=== PATIENT | female | born 1960 | race Caucasian/White ===

== ENCOUNTER 2023-07-11 08:32 | Day surgery (SDC) | payer OTHER, MEDICAID, SELFPAY ==
[2023-06-25 10:43] VITALS: BMI 22.9
[2023-06-25 11:07] LABS: % Basophils 0.5 % (0-2); % Eosinophils 2.9 % (0-6); % Immature Granulocytes 0.3 % (0-0.5); % Lymphocytes 12.4 % (20.5-51.1); % Monocytes 8.9 % (1.7-9.3); Absolute Eosinophils 0.2 10^3/uL (0-0.7); Absolute Lymphocytes 0.8 10^3/uL (1.2-3.4); Absolute Monocytes 0.6 10^3/uL (0.1-0.6); Absolute Neutrophils 4.9 10^3/uL (1.4-6.5); Hematocrit 39.3 % (37.0-47.0); Hemoglobin 13.3 g/dL (12.0-16.0); Mean Corp Hgb Conc. 33.8 g/dL (33.0-37.0); Mean Corpuscular Hgb 31.7 pg (27.0-31.0); Mean Corpuscular Volume 93.8 fL (81.0-99.0); Mean Platelet Volume 10.3 fL (7.4-10.4); Nucleated Red Blood Cells % 0 %; Platelet Count 237 10^3/uL (130-400); Red Blood Cell Count 4.19 10^6/uL (4.20-5.40); Red Cell Dist. Width 13.8 % (11.5-14.5); White Blood Cell Count 6.6 10^3/uL (4.8-10.8)
[2023-06-25 11:18] LABS: INR 3.55; PT 36.1 Sec (11.4-14.6)
[2023-06-25 12:41] LABS: ALT (SGPT) 52 U/L (0-35); AST (SGOT) 65 U/L (14-36); Albumin 4.4 g/dl (3.5-5.0); Alkaline Phosphatase 99 U/L (38-126); Blood Urea Nitrogen 21 mg/dl (7-17); Calcium 9.5 mg/dl (8.4-10.2); Carbon Dioxide 25 mmol/L (22-30); Chloride 98 mmol/L (98-107); Estimated Creatinine Clearance 60 ml/min; Glucose 107 mg/dl (70-99); Magnesium 2.3 mg/dl (1.6-2.3); Potassium 3.9 mmol/L (3.5-5.1); Sodium 137 mmol/L (135-145); Total Bilirubin 0.6 mg/dl (0.2-1.3); Total Protein 6.9 g/dl (6.3-8.2); eGFR > 60.00
--- NOTE | 2023-06-25 14:55 | HPS.HSE ---
Family Physician
-
Family Physician: Camryn Moon
Chief Complaint
-
Cardiomyopathy. Paroxysmal atrial fibrillation.
History of Present Illness
The patient is a 62 year old female presenting today for cardiomyopathy and paroxysmal atrial fibrillation. She previously underwent 2 pulmonary vein isolations for her arrhythmia. She is on current pharmacological therapy with Amiodarone
and Carvedilol. She takes Warfarin for oral anticoagulation. She did have a Medtronic [employer] device implanted due to her complex cardiac history with an eventual upgrade to a biventricular ICD in 2017. She was noted to have 2 months of battery life
remaining with her ICD at her last cardiac office visit on June 03, 2023. It is recommended she proceed with a biventricular ICD generator change at this time. She denies any complaints today such as chest pain, shortness of breath at rest,
nausea, vomiting, diarrhea, cough, sore throat, or fever.
Medical History
Past Medical History
Past Medical History: Reports Other
Additional Past Medical History:
1. Cardiomyopathy, status post Medtronic [employer] device with upgrade to biventricular ICD 2017.
2. Paroxysmal atrial fibrillation, status post pulmonary vein isolation x2; pharmacological therapy with Amiodarone and Carvedilol, oral anticoagulation with Coumadin.
3. Ventricular tachycardia, status post ablation 01/2023.
4. Ventricular tachycardia storm, 2012, in the setting of Tikosyn therapy.
5. Hypertension.
6. Borderline hypercholesterolemia.
7. Paroxysmal atrial tachycardia, status post remote cardioversion.
8. Non-obstructive coronary artery disease by cardiac cath 01/2023.
9. History of coronary vasospasm.
10. Congestive heart failure, preserved ejection fraction.
11. Mild tricuspid regurgitation.
12. History of myocarditis.
13. Venous varicosities.
14. CVA, 2012, treated with IAT at [facility], with residual left-sided weakness.
15. Hypothyroidism.
16. Endometriosis, status post hysterectomy.
17. Ovarian cysts.
18. Chronic neck pain.
19. Rosacea.
20. Depression.
21. Attention deficit disorder.
22. Suicide attempt 2016.
23. Chronically elevated transaminases.
Past Surgical History: Reports Other
Additional Past Surgical History:
1. Ventricular tachycardia ablation.
1. Pulmonary vein isolation x2.
2. Cardioversion.
3. Transesophageal echocardiogram.
4. Medtronic [employer] device with upgrade to biventricular ICD.
5. Cardiac catheterization x2.
6. Bilateral carpal tunnel release.
7. Hysterectomy.
8. Benign tumor excision from right hand.
Social History
Tobacco: Non-smoker
Alcohol: Other (She reports, on average, drinking alcohol 3-4x a week. )
Personal: Other
Living: Other (The patient lives in a one-story home independently.)
Family History
Family History: Not pertinent
Allergies / Home Medications
Allergy/Medication List:
MEDICATIONS:
1. Amiodarone 200 mg p.o. twice a day.
2. Atorvastatin 40 mg p.o. every evening.
3. Bupropion 150 mg p.o. daily.
4. Carvedilol 12.5 mg p.o. twice a day.
5. Furosemide 60 mg p.o. twice a day.
6. Jardiance 10 mg p.o. daily.
7. Levothyroxine 100 mcg p.o. daily.
8. Potassium chloride 40 mg p.o. twice a day.
9. Entresto 24-26 mg one tablet p.o. twice a day.
10. Warfarin 8 mg p.o. every evening.
11. Spironolactone 12.5 mg p.o. daily.
�
ALLERGIES:� No known allergies.
Review of Systems
-
A 12 point ROS was completed and negative except as noted: Yes
Physical Exam
Vital Signs
Blood pressure 103/69. Heart rate 60. Respirations 18. Pulse ox 97% on room air.
Height 5 feet, 6 inches. Weight 64.4 kg. BMI 22.9.
Physical Exam
General: Well Developed, Well Nourished and No Apparent Distress
HEENT: NormoCephalic, Moist mucous membranes, Atraumatic and PERRLA
Respiratory: Clear
Cardiac: Regular Rhythm and Other (ICD site intact. )
GI: Soft, Non Tender and Non Distended
Musculoskeletal: Normal Gait & Station
Skin: Warm and Dry
Neuro: AO x 3 and Nonfocal/grossly intact
Laboratory Results
-
06/25/23 10:59
06/25/23 10:59
Laboratory Results
PT 36.1 Sec (11.4-14.6) H 06/25/23 10:59
INR 3.55 06/25/23 10:59
Total Bilirubin 0.6 mg/dl (0.2-1.3) 06/25/23 10:59
AST 65 U/L (14-36) H 06/25/23 10:59
ALT 52 U/L (0-35) H 06/25/23 10:59
Alkaline Phosphatase 99 U/L (38-126) 06/25/23 10:59
Echocardiogram 01/08/2023:�Normal left ventricular size and systolic function. Dyskinesis of the basal anteroseptal wall. LV ejection fraction is 50% by Samuel's method of discs. Pacer wire seen in right ventricle. Mild tricuspid regurgitation.
Normal pericardium without effusion.
Cardiac catheterization 01/15/2023: Normal coronary arteries with no focal obstructive disease.
Impression/Plan
-
IMPRESSION/PLAN:
1. Cardiomyopathy and paroxysmal atrial fibrillation: The patient is in need of a biventricular ICD generator change with Dr. Aleksandr Gutierrez on 07/11/2023. The benefits and risks of the procedure have been explained to the patient. The patient
understands these risks and wishes to proceed. She is aware to hold her Warfarin 1 night prior to her procedure.
2. Supratherapeutic INR: The Coumadin clinic is aware of the patient's most recent INR. They have decreased her nightly dose of Warfarin from 8.5 mg to 8 mg nightly.
[2023-07-11] VITALS (12 sets, daily range): BP systolic 79–175; BP diastolic 49–103; BMI 22.6
--- NOTE | 2023-07-11 09:13 | W.ICD.CONTRA ---
Post ICD/AGENT TELEGRAPHER-D
-
History of SC?: No
LV Function
Left ventricular function study result?: Ejection Fraction >35% - <40%
ACEI/ARB/ARNI
Patient already on ACEI/ARB/ARNI: Yes
Beta-Alen
Patient already on Beta Alen: Yes
[2023-07-11 09:42] LABS: INR 2.45; PT 26.5 Sec (11.4-14.6)
--- NOTE | 2023-07-11 11:48 | ITS.CL.ICD ---
Dental Surgery Doctor - ICD
Implantable Cardioverter Defibrillator
Procedure Report:
Date of Procedure: July 11, 2023
Patient : 1960
Procedures: BiV ICD generator change
Indication: Generator at ZEE, underlying pacemaker dependence, secondary prevention generator as the patient has ongoing ICD therapies
Implants:
Pulse Generator: Medtronic; Model# DT [id number] 2QQ; Serial# [id number]
Atrial Lead: Medtronic: Model# 5076; Serial# [id number] implanted 2012
Right Ventricular Lead: Medtronic; Model# 6947; Serial# [id number] implanted 2012
Left Ventricular Lead: Medtronic; Model# 4398; Serial# [id number] implanted 2016
Explants:
Medtronic product number [id number] serial number [id number] implanted 2016
Technique: After informed consent and patient signed timeout the patient was prepped and draped in the usual fashion. The patient's warfarin had been held and the INR was 2.4 today and as such we proceeded with the procedure. Local anesthetic was
applied to the left prepectoral subcutaneous tissue. A 4 inch incision was made. We utilized the chronic incision site for the incision. The chronic generator was removed from the field and after adequate hemostasis the chronic generator was
removed from the leads and the leads were brought to the new device. The leads were appropriately attached to the device. The pocket was irrigated with antibiotic solution. The device and leads were placed in the pocket and the device was secured
to pectoralis muscle and facia. The incision was closed with absorbable sutures. The estimated blood loss was minimal. There were no complications. Device based testing was performed as described below.
System Analysis:
RA lead: P: 1.3 mV; Threshold: 0.75 V @ 0.5 ms; Impedance: 437 ohms.
RV lead: R: 0 mV; Threshold: 1.0 V @ 0.5 ms; Impedance: 361 ohms.
LV lead: R: 0 mV; Threshold: 2.75 V @ 0.5 ms; Impedance: 993 ohms.
Final Programming: Tachy: VT/VF:188; Yoshi: DDDR 60-120.
Conclusion: Uncomplicated Biventricular ICD generator change
Recommendation: Routine post BiV ICD care.
cc: Dr. Kailyn Casey
== END 2023-07-11 13:02 | disposition home or self-care (01) ==
LOC: CATH 08:32
PROVIDERS: ATTENDING PHYSICIAN Internal Medicine Cardiovascular Disease; FAMILY PHYSICIAN Family Medicine
DX: Z45.02 Encounter for adjustment and management of automatic implantable cardiac defibrillator (principal); I11.0 Hypertensive heart disease with heart failure; I43 Cardiomyopathy in diseases classified elsewhere; I48.0 Paroxysmal atrial fibrillation; Z79.01 Long term (current) use of anticoagulants; I50.30 Unspecified diastolic (congestive) heart failure; I47.20 Ventricular tachycardia, unspecified; Z86.73 Personal history of transient ischemic attack (TIA), and cerebral infarction without residual deficits; I25.10 Atherosclerotic heart disease of native coronary artery without angina pectoris; I07.1 Rheumatic tricuspid insufficiency; I51.4 Myocarditis, unspecified; I83.90 Asymptomatic varicose veins of unspecified lower extremity; E03.9 Hypothyroidism, unspecified; Z90.710 Acquired absence of both cervix and uterus; N83.209 Unspecified ovarian cyst, unspecified side; M54.2 Cervicalgia; G89.29 Other chronic pain; L71.9 Rosacea, unspecified; F32.A Depression, unspecified; F98.8 Other specified behavioral and emotional disorders with onset usually occurring in childhood and adolescence; Z91.51 Personal history of suicidal behavior; R74.01 Elevation of levels of liver transaminase levels; Z79.84 Long term (current) use of oral hypoglycemic drugs
CPT/HCPCS: 33264; 36415; 80053; 83735; 85025; 85610; 93005; C1882

== ENCOUNTER → 2023-08-22 11:17 | Outpatient (REF) | payer OTHER, MEDICAID, SELFPAY ==
[2023-08-22 12:48] LABS: Blood Urea Nitrogen 25 mg/dl (7-17); Calcium 9.7 mg/dl (8.4-10.2); Carbon Dioxide 30 mmol/L (22-30); Chloride 100 mmol/L (98-107); Glucose 103 mg/dl (70-99); Potassium 4.7 mmol/L (3.5-5.1); Sodium 137 mmol/L (135-145); eGFR > 60.00
== END ==
LOC: REG 11:17
PROVIDERS: ATTENDING PHYSICIAN Internal Medicine Cardiovascular Disease; FAMILY PHYSICIAN Family Medicine
DX: I48.0 Paroxysmal atrial fibrillation (principal)
CPT/HCPCS: 36415; 80048

== ENCOUNTER 2024-02-18 11:53 | Emergency (ER) | payer OTHER, SELFPAY ==
[2024-02-18 12:25] LABS: % Basophils 0.4 % (0-2); % Eosinophils 1.1 % (0-6); % Immature Granulocytes 0.2 % (0-0.5); % Lymphocytes 11.7 % (20.5-51.1); % Neutrophils 78.6 % (42.2-75.2); Absolute Eosinophils 0.1 10^3/uL (0-0.7); Absolute Lymphocytes 0.5 10^3/uL (1.2-3.4); Absolute Monocytes 0.4 10^3/uL (0.1-0.6); Absolute Neutrophils 3.6 10^3/uL (1.4-6.5); Hematocrit 41.3 % (37.0-47.0); Hemoglobin 13.7 g/dL (12.0-16.0); Mean Corp Hgb Conc. 33.2 g/dL (33.0-37.0); Mean Corpuscular Hgb 30.6 pg (27.0-31.0); Mean Corpuscular Volume 92.2 fL (81.0-99.0); Mean Platelet Volume 11.8 fL (7.4-10.4); Nucleated Red Blood Cells % 0 %; Platelet Count 170 10^3/uL (130-400); Red Blood Cell Count 4.48 10^6/uL (4.20-5.40); Red Cell Dist. Width 14.1 % (11.5-14.5); White Blood Cell Count 4.6 10^3/uL (4.8-10.8)
[2024-02-18 12:45] LABS: Troponin I 0.012 ng/ml
[2024-02-18 13:00] LABS: Blood Urea Nitrogen 26 mg/dl (7-17); Calcium 9.4 mg/dl (8.4-10.2); Carbon Dioxide 23 mmol/L (22-30); Chloride 102 mmol/L (98-107); Glucose 90 mg/dl (70-99); Sodium 136 mmol/L (135-145); eGFR > 60.00
[2024-02-18 14:16] VITALS: BP 93/53
[2024-02-18 14:36] VITALS: BP 93/52
[2024-02-18 15:00] VITALS: BP 90/66
--- NOTE | 2024-02-18 15:07 | ED.GENMED ---
History of Present Illness
General
Chief Complaint: Chest Pain
Source: patient
Exam Limitations: none
Time Seen by Provider: 02/18/24 14:47
History of Present Illness
History of Present Illness:
63-year-old female with history of cardiomyopathy, biventricular pacer with defibrillator, CHF, A-fib on Coumadin presents complaining of chest heaviness and shortness of breath. She also notes cough with congestion. She ran out of her Entresto
and did not take it for about 3 to 4 days and developed the symptoms afterwards. She denies any leg swelling or obvious weight gain. No nausea or vomiting. She does not feel fever. She denies any sensation of feeling ill or sick.
Past History
Past History
ED Past Medical History: Arrthythmia (Atrial fibrillation, VT), CHF, CVA (CVA in February 2013), HTN, Hypercholesterolemia and Hypothyroidism
ED Past Surgical History: Cardiac (icd placement, Ablation)
Social History
Tobacco: Non-smoker
Alcohol: Occasional
Drug: None
Personal:
Living: alone
Employment: Employed
Family History
Family History: Other (Noncontributory)
Phy Exam
Physical Exam
Physical Exam:
General: Well-appearing female no acute respiratory distress
HEENT: NC/AT
Heart: RRR, no murmurs
Lungs: CTA
ABd: soft, nontender
Ext: no cyanosis or edema
Skin: warm, no rash
Scores
Heart Score for Chest Pain Patients
STEMI patient?: No
History: Slightly or Non-Suspicious
ECG: Normal
Age: >45 - <65 years
Risk Factors: 1 or 2 Risk Factors
Troponin: </= Normal Limit
Heart Score for Chest Pain Patients: 2
Heart Score Risk: 2.5% MACE over next 6 weeks
Course
Orders/Labs/Results
Orders:
Orders
02/18/24 11:55
Electrocardiogram (*1) Urgent
Reason for Study: Chest Pain
EKG- Treatment ONCE
02/18/24 12:01
CR Chest - 2 Views Urgent
Comment:
Reason For Exam: cough
02/18/24 12:09
Basic Metabolic Panel Urgent
Complete Blood Count/With Diff Urgent
Troponin I Urgent
02/18/24 14:59
Interrogate Pacemaker- Treatment ONCE
02/18/24 15:38
Comprehensive Metabolic Panel Urgent
NT-proBNP Urgent
Prothrombin Time Urgent
Troponin I Urgent
02/18/24 17:49
Add On- LAB Urgent
Tests Added?: lipase
Abnormal Lab Results
02/18/24 02/18/24
12:09 15:38
WBC 4.6 L 10^3/uL
(4.8-10.8)
MPV 11.8 H fL
(7.4-10.4)
Absolute Lymphs (auto) 0.5 L 10^3/uL
(1.2-3.4)
Neutrophils % 78.6 H %
(42.2-75.2)
Lymphocytes % 11.7 L %
(20.5-51.1)
PT 31.3 H Sec
(11.4-14.6)
BUN 26 H mg/dl 25 H mg/dl
(7-17) (7-17)
AST 2152 H* U/L
(14-36)
ALT 1921 H* U/L
(0-35)
02/18/24 12:09
02/18/24 15:38
Vital Signs
Initial and Last Documented VS:
Initial Vital Signs
Temp Pulse Resp Pulse Ox
97.4 F 70 18 97
02/18/24 11:57 02/18/24 11:57 02/18/24 11:57 02/18/24 11:57
Last Documented Vital Signs
Temp Pulse Resp BP Pulse Ox
98.6 F 60 15 102/80 94
02/18/24 14:16 02/18/24 17:00 02/18/24 17:00 02/18/24 17:00 02/18/24 16:45
Distribution Field Technician consulted with Physician
Distribution Field Technician consulted with physician?: Yes
MDM/Problems Addressed
Differential Diagnosis Includes:
Shortness of breath with chest heaviness. Question viral illness versus CHF versus ACS. Unlikely be PE secondary to anticoagulated state. INR is pending
EKG shows paced rhythm without acute changes. Initial troponin negative but repeat troponin pending
Chronic conditions affecting care:
CHF, A-fib, cardiomyopathy
*Critical Care Note
Total Time (30-74mins, 75-104mins- exclusive of procedures): Not Applicable
Update Note
Update Note:
Workup here unremarkable including 2 negative troponins INR is 2.9 chest x-ray is clear Medtronic pacemaker interrogated which showed no dysfunction. Vital signs remained stable. Please note her blood pressure is 90s over 50s which is her
baseline. At this point no imminent sign of ACS PE dissection. Stable for discharge with follow-up with cardiology
5:52 PM. Received a call from the lab after the patient was discharged. This provider did not realize the sample was hemolyzed initially. Her AST and ALT are critically elevated. Spoke with the patient on the telephone advise she come back to
the hospital for further evaluation. Lipase added.
ED Attending Note
-
Portions of this chart may have been created with voice recognition software.� Occasional wrong word or��sound alike� substitutions may have occurred due to the inherent limitations of voice recognition software.
Discharge Plan
Departure
Patient Disposition: Home (Routine Discharge)
Date of Disposition: 02/18/24
Time of Disposition: 16:48
Patient with high blood pressure during this ER visit?: No
Discharge Problem:
Chest pain
Instructions: Chest Pain DCA Follow Up
Prescriptions:
No Action
Jardiance 10 mg Tablet
10 mg PO DAILY
Entresto 24-26 mg Tablet
1 tab PO BID
levothyroxine 100 mcg Tablet
100 mcg PO DAILY
atorvastatin 40 mg Tablet
40 mg PO QPM
carvedilol 12.5 mg Tablet
12.5 mg PO BID
potassium chloride 20 mEq Tablet Extended Release
40 meq PO BID
bupropion HCl 150 mg Tablet Extended Release 24 Hr
150 mg PO DAILY Qty: 30 3RF
amiodarone [Pacerone] 200 mg Tablet
200 mg PO BID Qty: 60 2RF
Rx Instructions:
continue amiodarone 200mg twice daily for 30 days then decrease to 200mg daily.
spironolactone 25 mg Tablet
12.5 mg PO DAILY
warfarin 6 mg Tablet
6 mg PO QPM
Rx Instructions:
8.5 qpm
furosemide [Lasix] 20 mg Tablet
60 mg PO BID
warfarin 2 mg Tablet
2 mg PO QPM
Referrals:
Aleksandr Gutierrez MD [Family Provider] -
Activity Restrictions/Additional Instructions:
Please return here for any worsening symptoms. Continue current medication regimen. Follow-up with your quill collector otherwise
Interventions
Interventions:
*Risk Screen - Suicide Last Done: 02/18/24 11:57
*General Assessment Last Done: 02/18/24 11:57
*Neglect/Abuse Screening Last Done: 02/18/24 11:57
ED- Fall Risk Assessment Last Done: 02/18/24 14:44
*ED COVID-19 Vaccine History Last Done: 02/18/24 17:18
*Nursing Disposition Last Done: 02/18/24 17:18
ED- Cardiac Assessment Last Done: 02/18/24 14:44
Discharge Date and Time
Discharge Date/Time: 02/18/24 17:20
Print Language: BELARUSIAN
[2024-02-18 15:10] VITALS: BMI 21.0
[2024-02-18 16:00] VITALS: BP 101/65
[2024-02-18 16:01] LABS: INR 2.96; PT 31.3 Sec (11.4-14.6)
[2024-02-18 16:05] LABS: Albumin 4.3 g/dl (3.5-5.0); Alkaline Phosphatase 122 U/L (38-126); Blood Urea Nitrogen 25 mg/dl (7-17); Calcium 8.9 mg/dl (8.4-10.2); Carbon Dioxide 22 mmol/L (22-30); Chloride 101 mmol/L (98-107); Estimated Creatinine Clearance 59 ml/min; Glucose 78 mg/dl (70-99); Potassium 4.9 mmol/L (3.5-5.1); Sodium 135 mmol/L (135-145); Total Bilirubin 0.8 mg/dl (0.2-1.3); Total Protein 6.7 g/dl (6.3-8.2); eGFR > 60.00
[2024-02-18 16:16] LABS: NT-proBNP 628 pg/ml; Troponin I < 0.012 ng/ml
[2024-02-18 17:00] VITALS: BP 102/80
[2024-02-18 17:51] LABS: ALT (SGPT) 1921 U/L (0-35); AST (SGOT) 2152 U/L (14-36)
[2024-02-18 18:48] LABS: Lipase 64 U/L (23-300)
== END 2024-02-18 17:20 | disposition home or self-care (01) ==
LOC: EMR 11:53
PROVIDERS: Physician Assistant; Student in an Organized Health Care Education/Training Program; EMERGENCY PHYSICIAN Emergency Medicine; FAMILY PHYSICIAN Internal Medicine Cardiovascular Disease
DX: R07.89 Other chest pain (principal); I11.0 Hypertensive heart disease with heart failure; I50.9 Heart failure, unspecified; E03.9 Hypothyroidism, unspecified; E78.00 Pure hypercholesterolemia, unspecified; I42.9 Cardiomyopathy, unspecified; I48.91 Unspecified atrial fibrillation; Z79.01 Long term (current) use of anticoagulants; Z86.73 Personal history of transient ischemic attack (TIA), and cerebral infarction without residual deficits; Z95.810 Presence of automatic (implantable) cardiac defibrillator
CPT/HCPCS: 93288; 99285; 71046; 80048; 80053; 83690; 83880; 84484; 85025; 85610; 93005

== ENCOUNTER 2024-11-25 11:17 | Emergency (ER) | payer OTHER, SELFPAY ==
[2024-11-25 11:22] VITALS: BP 102/72
[2024-11-25 11:40] LABS: Hematocrit 44.3 % (37.0-47.0); Hemoglobin 14.7 g/dL (12.0-16.0); Mean Corp Hgb Conc. 33.2 g/dL (33.0-37.0); Mean Corpuscular Volume 93.7 fL (81.0-99.0); Nucleated Red Blood Cells % 0 %; Platelet Count 211 10^3/uL (130-400); Red Cell Dist. Width 13.0 % (11.5-14.5)
[2024-11-25 11:57] LABS: ALT (SGPT) 26 U/L (0-35); AST (SGOT) 44 U/L (14-36); Albumin 5.5 g/dl (3.5-5.0); Alkaline Phosphatase 86 U/L (38-126); Blood Urea Nitrogen 20 mg/dl (7-17); Calcium 9.4 mg/dl (8.4-10.2); Carbon Dioxide 27 mmol/L (22-30); Chloride 100 mmol/L (98-107); Glucose 120 mg/dl (70-99); Potassium 4.1 mmol/L (3.5-5.1); Sodium 139 mmol/L (135-145); Total Protein 8.7 g/dl (6.3-8.2); eGFR > 60.00
[2024-11-25 12:05] VITALS: BP 120/68
[2024-11-25 12:08] LABS: Troponin I 0.017 ng/ml
--- NOTE | 2024-11-25 12:12 | ED.GENMED ---
History of Present Illness
General
Chief Complaint: Chest Pain
Source: patient
Time Seen by Provider: 11/25/24 11:55
History of Present Illness
History of Present Illness:
This patient is a 64-year-old female presents emergency department with complaints of chest 'tightness' associated with dyspnea that she first noticed 3 days ago. She said she felt perfectly well 3 days ago when she woke up, but then within an hour
she developed a gradual onset of tightness across her chest associated with dyspnea. The pain would sometimes radiate to the jaw and bilateral arms as well. This was not associated with diaphoresis, nausea, vomiting, back pain. It lasted about 3
hours and then spontaneously resolved. She again noted the discomfort yesterday morning, again lasting approximately 3 hours and resolving. Today, she again developed the pain, and it seemed worse which prompted her to come to the emergency
department for evaluation. She does note a recent 5 pound weight gain and as a result increased her Lasix from 60 to 80 mg over the last 3 days. She denies fever, chills, abdominal pain, new leg swelling. When asked if she has discomfort now she
states that she has a 'heavy' feeling in her chest which is her baseline. She did contact her business analysis specialist on Friday and had a remote interrogation of her pacer which was unremarkable
Past History
Past History
ED Past Medical History: Arrthythmia (Atrial fibrillation, VT), CHF, CVA (CVA in February 2013), HTN, Hypercholesterolemia and Hypothyroidism
ED Past Surgical History: Cardiac (icd placement, Ablation)
Social History
Tobacco: Non-smoker
Alcohol: Occasional
Drug: None
Personal:
Living: alone
Employment: Employed
Family History
Family History: Other (Noncontributory)
Phy Exam
Physical Exam
Physical Exam:
GENERAL: Alert , in no apparent distress
EYE: pupils equal and reactive
NECK: Supple, no significant adenopathy.
ENT: o/p clr, mmm.
CARDIAC: Regular rate and rhythm .
LUNGS: Clear breath sounds bilaterally, no acute respiratory distress, no wheezes/rales/rhonchi
ABDOMEN: Soft, without focal tenderness, no r/g, no cvat
NEUROLOGICAL: Alert and oriented, no focal neuro deficits
SKIN: Warm and dry, skin intact.
MUSCULOSKELETAL: No edema, well perfused.
PSYCH: Normal and appropriate interaction.
Course
Orders/Labs/Results
Orders:
Orders
11/25/24 11:17
ECG [Electrocardiogram (*1)] Urgent
Reason for Study: Chest Pain
EKG- Treatment ONCE
11/25/24 11:32
Complete Blood Count/With Diff Urgent
Comprehensive Metabolic Panel Urgent
Troponin I Urgent
11/25/24 12:15
Interrogate Pacemaker- Treatment ONCE
CR Chest - 2 Views Urgent
Comment:
Reason For Exam: sob/cp, hx hf
11/25/24 14:11
Aspirin 325 mg PO NOW STA
11/25/24 14:20
Prothrombin Time Urgent
11/25/24 15:18
Troponin I Urgent
Abnormal Lab Results
11/25/24 11/25/24
11:32 14:20
MCH 31.1 H pg
(27.0-31.0)
PT 25.6 H Sec
(11.4-14.6)
BUN 20 H mg/dl
(7-17)
Glucose 120 H mg/dl
(70-99)
AST 44 H U/L
(14-36)
Total Protein 8.7 H g/dl
(6.3-8.2)
Albumin 5.5 H g/dl
(3.5-5.0)
11/25/24 11:32
11/25/24 11:32
Vital Signs
Initial and Last Documented VS:
Initial Vital Signs
Temp Pulse Resp BP Pulse Ox
98.2 F 77 16 102/72 98
11/25/24 11:22 11/25/24 11:22 11/25/24 11:22 11/25/24 11:22 11/25/24 11:22
Last Documented Vital Signs
Temp Pulse Resp BP Pulse Ox
98.2 F 60 18 105/73 99
11/25/24 11:22 11/25/24 16:25 11/25/24 16:25 11/25/24 16:25 11/25/24 16:25
*Pulse Oximetry
SaO2: 98
Oxygen Mode of Delivery: Room air
Update Note
Update Note:
Patient presents to the Emergency Department with chest pain and dyspnea
Number and Complexity of Problems Addressed at the Encounter
� Chronic conditions affecting care:
� Acute Exacerbation and/or Progression of Chronic Illness:
� Differential Diagnosis includes: But not limited to ACS, pneumonia, PE, heart failure exacerbation, etc. etc.
Amount and/or Complexity of Data to be Reviewed and Analyzed
� I performed an independent evaluation of and my interpretation is:
EKG: Read by me, normal rate, paced rhythm, no acute ischemia
CT:
Xrays: Read by me, NAD
Laboratory Studies: Troponin flat x 2
Other:
� Review of other/old records reveals:
� Clinical information was obtained by an independent historian:
� Prescriptions/Medications Considered but not given:
� Further testing considered but not performed:
Risk of Complications and/or Morbidity or Mortality of Patient Management
� Social determinants of health affecting care:
� Discussion with other providers (PCP, Hospitalists, Consultants, etc):
� Escalation of care including admission/observation vs risk of discharge considered: Case discussed with Dr. Panchito KIRBY via [employer] text, and he saw the patient in consult. Patient does not want to stay in the hospital for further
testing, and outpatient stress testing was arranged for her. Patient is very eager to go home, is nontoxic, without other complaints.
ED Attending Note
-
Portions of this chart may have been created with voice recognition software.� Occasional wrong word or��sound alike� substitutions may have occurred due to the inherent limitations of voice recognition software.
Discharge Plan
Departure
Patient Disposition: Home (Routine Discharge)
Date of Disposition: 11/25/24
Time of Disposition: 16:34
Patient with high blood pressure during this ER visit?: No
Condition: Good
Discharge Problem:
Chest pain
Instructions: Chest Pain
Prescriptions:
No Action
Jardiance 10 mg Tablet
10 mg PO DAILY
Entresto 24-26 mg Tablet
1 tab PO BID
levothyroxine 100 mcg Tablet
100 mcg PO DAILY
atorvastatin 40 mg Tablet
40 mg PO QPM
carvedilol 12.5 mg Tablet
12.5 mg PO BID
potassium chloride 20 mEq Tablet Extended Release
40 meq PO BID
bupropion HCl 150 mg Tablet Extended Release 24 Hr
150 mg PO DAILY Qty: 30 3RF
amiodarone [Pacerone] 200 mg Tablet
200 mg PO BID Qty: 60 2RF
Rx Instructions:
continue amiodarone 200mg twice daily for 30 days then decrease to 200mg daily.
spironolactone 25 mg Tablet
12.5 mg PO DAILY
warfarin 6 mg Tablet
6 mg PO QPM
Rx Instructions:
8.5 qpm
furosemide [Lasix] 20 mg Tablet
60 mg PO BID
warfarin 2 mg Tablet
2 mg PO QPM
Referrals:
Camryn Moon DO [Family Provider, Family Practice]
Activity Restrictions/Additional Instructions:
PLEASE FOLLOW-UP WITH A PLAYROOM ATTENDANT DIRECTED. IF YOU DEVELOP RECURRENT OR NEW CHEST PAIN, ANY SHORTNESS OF BREATH, FEVER, VOMITING, DIZZINESS, SWELLING, OR OTHER WORRISOME SIGNS, PLEASE RETURN TO THE ER IMMEDIATELY!
Interventions
Interventions:
*Risk Screen - Suicide Last Done: 11/25/24 11:22
*General Assessment Last Done: 11/25/24 11:55
*Neglect/Abuse Screening Last Done: 11/25/24 11:22
*ED- Fall Risk Assessment Last Done: 11/25/24 11:54
*ED COVID-19 Vaccine History Last Done: 11/25/24 11:54
ED- Cardiac Assessment Last Done: 11/25/24 11:54
Discharge Date and Time
Print Language: ESTONIAN
[2024-11-25 13:00] VITALS: BP 101/61
[2024-11-25 14:00] VITALS: BP 98/67
[2024-11-25] MEDS: ASPIRIN 325 MG PO (14:19)
[2024-11-25 14:41] LABS: INR 2.28; PT 25.6 Sec (11.4-14.6)
--- NOTE | 2024-11-25 14:47 | CON.CAR ---
Addendum entered and electronically signed by Blas Eaton DO 11/25/24 21:28:
I saw and examined the patient 11/25/2024 16:10.
The Superintendent System Operation's note was reviewed and I agree with the note.
Comment:
Plan:
Troponins remain negative. She only has symptoms in the AM after her coffee. she does not have symptoms with walking later in the day.
Discussed options including admit for inpt ischemic eval with nuclear stress testing.
Pt declines admit for stress testing
MIBI scheduled for next week.
ER work up unremarkable including PPM interogation.
EKG with pacing and no ischemic changes.
She knows to come back to hospital with recurrent symptoms.
She will stop drinking coffee in the morning
Stable for outpt work up.
Reviewed with ER.
Original Note:
Consultation
Consultation Request
Date/Time Consultation Performed: 11/25/24
Requesting Provider: Dr. Man
Performing Provider: Margarita Vegas PA-C for Dr. Eaton
Reason for Consultation: CP
Medical History
-
Chief Complaint: CP
History of Present Illness:
Patient is a 62-year-old female with past medical history significant for ventricular tachycardia, paroxysmal atrial fibrillation, atrial tachycardia for which she is on chronic amiodarone therapy and chronic anticoagulation with Coumadin. She has
nonischemic cardiomyopathy with BiVICD, nonobstructive CAD on cath in 2016, coronary artery vasospasm, prior CVA with IAT in 2012 which was felt to be related to Xarelto failure, myocarditis, abnormal LFTs and history of daily alcohol use. Patient
had prior VT storm in the setting of Tikosyn therapy in 2012 and was transitioned to amiodarone at that time. She then had VT storm 11/2022 resulting in VT ablation 01/2023. She had VT F event with defibrillator discharge 03/04/2023 and amiodarone
was temporarily increased. She then had ventricular arrhythmia with ICD discharge 04/2023. Since then she has been relatively quiescent in terms of arrhythmia. She reports she has been feeling well overall, until the last 3 days where she has
completed the same routine of getting up and walking her dog. During her walk she notices her heart rate is elevated. She then returns to her home and this morning upon drinking a half a cup of coffee she then noted chest discomfort which felt
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 This morning was worse than the last 2 mornings with pain radiating up to her jaw and down both of her arms. She reports after about 3 hours the pain goes away on its own. She has not noted any limitations in her activity.
She does report she was retaining fluid and temporarily increased her Lasix for several days from 60 daily to 80 daily with good response. Today she took her normal 60 mg daily. Chest x-ray without evidence of acute CHF. Initial troponin 0.017
PMH:
Paroxysmal Afib
s/p PVI 05/2009
s/p PVI 06/2010
Chronic amiodarone therapy
h/o VT storm in the setting of Tikosyn therapy 2012
VT storm 11/2022 s/p epicardial and endocardial VT ablation 01/08/23
h/o Multaq, stopped because ineffective
s/p Medtronic AIRFIELD MANAGER-D 03/2013, upgraded to BiVICD 08/2016
Nonobstructive CAD by cath 01/15/23
Paroxysmal Atach
Chronic warfarin therapy
h/o CVA treated with IAT at [facility] 03/2013
considered a Xarelto failure
h/o suicide attempt 2015
h/o Myocarditis
h/o abnormal LFTs
Coronary vasospasm
Past Medical History
Past Medical History: Other (see HPI)
Past Surgical History: Cardiac (PVI ablation 05/2009, repeat PVI 06/2010, d/c medtronic ICD 03/2013) and Other (IAT @ [facility] 03/2013)
Social History
Tobacco: Non-Smoker
Alcohol: Occasional (3-4 glasses of wine weekly)
Drug: None
Living: Alone
Employment: Retired
Family History
Family History: Adopted
Allergies / Home Medications
Allergy/AdvReac Type Severity Reaction Status Date / Time
No Known Allergies Allergy Verified 11/25/24 11:22
�Medication �Instructions �Recorded �Confirmed �Type
empagliflozin 10 mg tablet 10 mg PO DAILY Heart Failure 11/18/22 07/11/23 History
(Jardiance)
levothyroxine 100 mcg tablet 100 mcg PO DAILY 12/30/22 07/11/23 History
sacubitril 24 mg-valsartan 26 mg 1 tab PO BID 12/30/22 07/11/23 History
tablet (Entresto)
atorvastatin 40 mg tablet 40 mg PO QPM 01/08/23 06/23/23 History
carvedilol 12.5 mg tablet 12.5 mg PO BID 01/08/23 07/11/23 History
potassium chloride 20 mEq 40 meq PO BID 01/08/23 07/11/23 History
tablet,extended release
amiodarone 200 mg tablet (Pacerone) 200 mg PO BID #60 tabs 01/10/23 07/11/23 Rx
bupropion HCl 150 mg 24 hr tablet, 150 mg PO DAILY #30 tabs 01/10/23 07/11/23 Rx
extended release
furosemide 20 mg tablet (Lasix) 60 mg PO BID 06/23/23 07/11/23 History
spironolactone 25 mg tablet 12.5 mg PO DAILY 06/23/23 07/11/23 History
warfarin 6 mg tablet 6 mg PO QPM 06/23/23 07/11/23 History
warfarin 2 mg tablet 2 mg PO QPM 06/25/23 07/11/23 History
Review of Systems
-
History Source: Patient
All other systems: Negative unless noted
Physical Exam
Vital Signs
Temp Pulse Resp BP Pulse Ox
98.2 F 60 20 98/67 98
11/25/24 11:22 11/25/24 14:00 11/25/24 14:00 11/25/24 14:00 11/25/24 14:10
Lab Results
11/25/24 11:32
11/25/24 11:32
Troponin I Cancelled 11/25/24 14:20
Physical Exam
General: No Apparent Distress and Comfortable
HEENT: Normocephalic, Anicteric and Moist Mucous Membranes
Respiratory: Clear and Non Labored Respirations
Cardiac: S1/S2 and Regular Rhythm
GI: Soft, Non Tender, Non Distended and Normal Bowel Sounds
Musculoskeletal: No Clubbing, No Cyanosis and No Edema
Skin: Warm and Dry
Neuro: AO x 3
Impression / Plan
-
Primary Timekeeper: Dr. Kailyn Spence
Primary EP: Dr. Gutierrez
Assessment:
CP
Normal trop x1
Paroxysmal Afib
s/p PVI 05/2009
s/p PVI 06/2010
Chronic amiodarone therapy
h/o VT storm in the setting of Tikosyn therapy 2012
VT storm 11/2022 s/p epicardial and endocardial VT ablation 01/08/23
h/o Multaq, stopped because ineffective
s/p Medtronic AIRFIELD MANAGER-D 03/2013, upgraded to BiVICD 08/2016
Nonobstructive CAD by cath 01/15/23
Paroxysmal Atach
Chronic warfarin therapy
h/o CVA treated with IAT at [facility] 03/2013
considered a Xarelto failure
h/o suicide attempt 2015
h/o Myocarditis
h/o abnormal LFTs
Coronary vasospasm
Echo 01/09/2023: EF 50% with dyskinesis of basal anteroseptal wall, pacer wire in RV, mild TR
Cardiac catheterization 01/08/2023: Normal coronary arteries with no focal obstructive disease
Plan:
- Patient presents with chest discomfort occurring cyclically over the last 3 mornings, lasting several hours and then improving over time. No symptoms while doing activity. Today's episode was more severe with radiation up to her jaw and down her
arms resulting in her coming to the ER for further evaluation
- currently pain free and looks well
- was given 324mg asa in ER
- EKG V paced rhythm. She did have 2 device interrogations within the last week, both of which are without evidence of arrhythmia
- Chest x-ray without evidence of acute CHF and proBNP 628
- last echo and cath from 01/2023 reviewed with patient, as above
- awaiting second troponin
- pending result, would consider for inpatient vs outpatient stress test
Data Reviewed
-
EKG: Tracing Personally Visualized and interpreted
Radiology: Report Reviewed by me
Medical Tests (Nuc Med, Echo etc): Report Reviewed by me
Labs: Labs Reviewed by me
Old Records: Reviewed
[2024-11-25 15:05] VITALS: BP 112/71
[2024-11-25 15:52] LABS: Troponin I 0.018 ng/ml
[2024-11-25 16:25] VITALS: BP 105/73
== END 2024-11-25 16:41 | disposition home or self-care (01) ==
LOC: EMR 11:17
PROVIDERS: Emergency Medicine; EMERGENCY PHYSICIAN Emergency Medicine; FAMILY PHYSICIAN Family Medicine
DX: R07.89 Other chest pain (principal); R06.00 Dyspnea, unspecified; I48.0 Paroxysmal atrial fibrillation; I11.0 Hypertensive heart disease with heart failure; I50.9 Heart failure, unspecified; E03.9 Hypothyroidism, unspecified; E78.00 Pure hypercholesterolemia, unspecified; I42.8 Other cardiomyopathies; Z79.01 Long term (current) use of anticoagulants; Z82.49 Family history of ischemic heart disease and other diseases of the circulatory system; Z86.73 Personal history of transient ischemic attack (TIA), and cerebral infarction without residual deficits; Z86.79 Personal history of other diseases of the circulatory system; Z91.51 Personal history of suicidal behavior; Z95.810 Presence of automatic (implantable) cardiac defibrillator
CPT/HCPCS: 99283; 71046; 80053; 84484; 85025; 85610; 93005

== ENCOUNTER → 2024-12-02 12:15 | Outpatient (REF) | payer OTHER, SELFPAY | LOC: RCS 12:15 | PROVIDERS: ATTENDING PHYSICIAN Internal Medicine Cardiovascular Disease; FAMILY PHYSICIAN Family Medicine | DX: R07.9 Chest pain, unspecified (principal); I47.20 Ventricular tachycardia, unspecified | CPT/HCPCS: 78452; 93017; A9500; J2785 ==

== ENCOUNTER → 2024-12-21 12:50 | Outpatient (REF) | payer OTHER, SELFPAY | LOC: RCS 12:50 | PROVIDERS: ATTENDING PHYSICIAN Internal Medicine Cardiovascular Disease; FAMILY PHYSICIAN Family Medicine | DX: I50.32 Chronic diastolic (congestive) heart failure (principal); I42.8 Other cardiomyopathies | CPT/HCPCS: 93306 ==

== ENCOUNTER 2025-01-05 07:49 | Day surgery (SDC) | payer OTHER, SELFPAY ==
[2024-12-30 11:36] VITALS: BMI 21.2
[2024-12-30 12:02] LABS: Hematocrit 39.9 % (37.0-47.0); Hemoglobin 13.1 g/dL (12.0-16.0); Mean Corp Hgb Conc. 32.8 g/dL (33.0-37.0); Mean Corpuscular Volume 93.9 fL (81.0-99.0); Nucleated Red Blood Cells % 0 %; Platelet Count 202 10^3/uL (130-400); Red Cell Dist. Width 13.6 % (11.5-14.5)
[2024-12-30 12:13] LABS: INR 3.69; PT 36.8 Sec (11.4-14.6)
[2024-12-30 12:22] LABS: ALT (SGPT) 32 U/L (0-35); AST (SGOT) 36 U/L (14-36); Albumin 5.2 g/dl (3.5-5.0); Alkaline Phosphatase 91 U/L (38-126); Blood Urea Nitrogen 22 mg/dl (7-17); Calcium 9.5 mg/dl (8.4-10.2); Carbon Dioxide 26 mmol/L (22-30); Chloride 103 mmol/L (98-107); Estimated Creatinine Clearance 58 ml/min; Glucose 112 mg/dl (70-99); Potassium 5.4 mmol/L (3.5-5.1); Sodium 136 mmol/L (135-145); Total Protein 7.6 g/dl (6.3-8.2); eGFR > 60.00
[2025-01-05] VITALS (20 sets, daily range): BP systolic 72–109; BP diastolic 43–86; BMI 20.2
[2025-01-05 08:22] LABS: PT 16.3 Sec (11.4-14.6)
[2025-01-05 08:32] LABS: INR 1.26
[2025-01-05] MEDS: NSS 170 ML IV (08:34)
[2025-01-05] MEDS: NSS 1000 IV (10:04)
--- NOTE | 2025-01-05 10:17 | ITS.CL.CATH ---
Test Tube Maker - Catheterization
Cardiac Catheterization
Procedure Report:
LEFT HEART CATHETERIZATION
Date of Procedure: January 05, 2025
Referring: Dr. Kailyn Casey
PROCEDURES:
1. Left heart catheterization with coronary and single-plane left ventriculography
INDICATION: Nonischemic cardiomyopathy with history of ventricular tachycardia
ACCESS: Right radial artery, 5 Telugu sheath using ultrasound guidance
HEMODYNAMICS : (mmHg)
AO (s/d) : 99/58, 75
LV (s/d) : 99/20
LVEDP : 25
CORONARY FINDINGS
DOMINANCE: Left
LEFT MAIN: [ ]
LEFT ANTERIOR DESCENDING: The LAD arises normally from the left main and runs in the anterior interventricular groove. The LAD is widely patent with only minimal luminal irregularities in the distal vessel wraps completely around the apex supplying
a significant portion of the inferior wall
CIRCUMFLEX: The circumflex is a moderate caliber dominant vessel that has only minor irregularities over its course
RIGHT CORONARY ARTERY: Small nondominant
VENTRICULOGRAPHY: Left ventriculography is performed in an NEFF projection. The digital single-plane left ventricular ejection fraction is estimated at 40-45% with 2+ mitral regurgitation
SEDATION: 27 minutes of procedural sedation was utilized. An independent medical chief technician was present to assist with and help manage the patient's level of consciousness and physiologic status.
RADIATION SUMMARY: Fluoro Time (min): 3.5, Dose (mGy): 213, DAP (Gy.cm2) : 17.8
Closure Device: TR band
CONCLUSIONS
1. Nonobstructive coronary artery disease
2. Mildly reduced LVEF with 2+ mitral regurgitation
RECOMMENDATIONS
1. Will resume oral anticoagulation
2. Will discuss further with Dr. Kailyn Casey to determine next steps
Copy to: Dr. Kailyn Casey
--- NOTE | 2025-01-05 11:05 | PTCARENOTE ---
Patient's blood pressure has been running low. BP 72/43 now. Patient asymptomatic. TAQUERIA Burr aware. Additional 250ml of NSS to be given IV as fluid bolus as ordered by TAQUERIA Burr.
--- NOTE | 2025-01-05 12:37 | PTCARENOTE ---
Patient sat on edge of bed without dizziness or lightheadedness. BP 81/50 after sitting on side of bed. Patient ambulated to the bathroom without difficulty or incident. BP 90/48 after ambulating. Patient says her blood pressure normally runs in the
80s. TAQUERIA Burr aware and said it was okay to discharge patient to home as ordered since patient is asymptomatic.
== END 2025-01-05 12:44 | disposition home or self-care (01) ==
LOC: CATH 07:49
PROVIDERS: Nurse Practitioner Adult Health; ATTENDING PHYSICIAN Internal Medicine Interventional Cardiology; FAMILY PHYSICIAN Family Medicine; OTHER PHYSICIAN Nurse Practitioner Gerontology
DX: I25.10 Atherosclerotic heart disease of native coronary artery without angina pectoris (principal); Z86.79 Personal history of other diseases of the circulatory system; I42.8 Other cardiomyopathies; E03.9 Hypothyroidism, unspecified; E78.5 Hyperlipidemia, unspecified; F32.A Depression, unspecified; F41.9 Anxiety disorder, unspecified; G89.29 Other chronic pain; I08.1 Rheumatic disorders of both mitral and tricuspid valves; I11.0 Hypertensive heart disease with heart failure; I47.20 Ventricular tachycardia, unspecified; I48.0 Paroxysmal atrial fibrillation; I50.9 Heart failure, unspecified; Z45.02 Encounter for adjustment and management of automatic implantable cardiac defibrillator; Z79.01 Long term (current) use of anticoagulants; Z79.82 Long term (current) use of aspirin; Z79.890 Hormone replacement therapy; Z79.899 Other long term (current) drug therapy; Z86.73 Personal history of transient ischemic attack (TIA), and cerebral infarction without residual deficits; Z90.710 Acquired absence of both cervix and uterus; Z91.51 Personal history of suicidal behavior
CPT/HCPCS: 99152; 99153; 36415; 80053; 85025; 85610; 93005; 93458; C1894; Q9967

== ENCOUNTER 2025-01-10 10:53 | Inpatient (IN) | payer OTHER, SELFPAY ==
[2025-01-10] VITALS (7 sets, daily range): BP systolic 100–133; BP diastolic 58–91; BMI 20.7
[2025-01-10 12:08] LABS: Hematocrit 39.2 % (37.0-47.0); Hemoglobin 13.0 g/dL (12.0-16.0); Mean Corp Hgb Conc. 33.2 g/dL (33.0-37.0); Mean Corpuscular Volume 92.7 fL (81.0-99.0); Platelet Count 196 10^3/uL (130-400); Red Cell Dist. Width 13.2 % (11.5-14.5)
[2025-01-10 12:11] LABS: ALT (SGPT) 22 U/L (0-35); AST (SGOT) 28 U/L (14-36); Albumin 5.0 g/dl (3.5-5.0); Alkaline Phosphatase 74 U/L (38-126); Blood Urea Nitrogen 22 mg/dl (7-17); Calcium 9.8 mg/dl (8.4-10.2); Carbon Dioxide 22 mmol/L (22-30); Chloride 108 mmol/L (98-107); Estimated Creatinine Clearance 74 ml/min; Glucose 97 mg/dl (70-99); Magnesium 2.4 mg/dl (1.6-2.3); Potassium 4.8 mmol/L (3.5-5.1); Sodium 138 mmol/L (135-145); Total Protein 7.5 g/dl (6.3-8.2); eGFR > 60.00
[2025-01-10 12:14] LABS: INR 1.29; PT 16.4 Sec (11.4-14.6)
--- NOTE | 2025-01-10 13:01 | CON.CAR ---
Addendum entered and electronically signed by Blas Eaton DO 01/10/25 17:39:
I saw and examined the patient.
The Toolmaker Helper's note was reviewed and I agree with the note.
Comment:
Plan:
Direct admit for amiodarone and mexiletine wash out in anticipation of VT ablation Jan 11 2025
She appears compensated for VT ablation procedure
IV heparin bridge given hx of CVA
Cont Coreg, monitor for recurrent VT
Keep K>4 and Mg>2.
Original Note:
Consultation
Consultation Request
Date/Time Consultation Requested: 01/10/25
Date/Time Consultation Performed: 01/10/25
Performing Provider: Dr. Eaton
Reason for Consultation: H&P for direct admission for VT ablation 01/11/25
Medical History
-
History of Present Illness:
Patient came to the hospital today as a direct admission for planned amiodarone and mexiletine washout in anticipation of VT ablation on 01/11/2025. Patient was seen in the ER for chest pain on 11/25/2024 and a week later completed a Lexiscan nuclear
stress test that showed fixed inferior defect and EF down to 41% which prompted echo on 12/21/2024 that showed EF 45 to 50%. Patient continued to have symptoms of chest pain and palpitations and eventually had a 10-day rhythm star monitor applied
that showed NSVT. Patient then had device reprogramming of her Medtronic SHORTHAND TEACHER�D, but ongoing symptoms and is now referred for VT ablation. Patient has a history of VT storm in the setting of Tikosyn therapy back in 2012. And then she had repeat VT
storm in 2022 and at that time had epicardial and endocardial VT ablation on 01/08/2023. Her amiodarone dose was increased to 200 mg daily and she also had mexiletine added with recurrent VT most recently, she did not take any of her usual doses of
amiodarone or mexiletine today. Patient also has a history of CVA [facility] and it was considered a Xarelto failure. She is now chronically on warfarin with INR is managed by [facility] and a goal of 2-3 using home fingerstick INR
machine.
PMH:
h/o VT storm in the setting of Tikosyn therapy 2012
h/o VT storm 11/2022 s/p epicardial and endocardial VT ablation 01/08/23
Chronic amiodarone and mexiletine therapy
Paroxysmal Afib
s/p PVI 05/2009
s/p PVI 06/2010
h/o Multaq, stopped because ineffective
s/p Medtronic SHORTHAND TEACHER-D 03/2013, upgraded to BiVICD 08/2016
Nonobstructive CAD by cath 01/15/23 and again 01/05/2025
Paroxysmal Atach
Chronic warfarin therapy
h/o CVA [facility]
considered a Xarelto failure
h/o suicide attempt 2015
h/o Myocarditis
h/o abnormal LFTs
Coronary vasospasm
Past Medical History
Past Medical History: Other
Past Surgical History: Cardiac (PVI ablation 05/2009, repeat PVI 06/2010, d/c medtronic ICD 03/2013) and Other ([facility]AT [facility])
Social History
Tobacco: Non-Smoker
Alcohol: Occasional (3-4 glasses of wine weekly)
Drug: None
Living: Alone
Employment: Retired
Family History
Family History: Adopted
Allergies / Home Medications
Allergy/AdvReac Type Severity Reaction Status Date / Time
No Known Allergies Allergy Verified 01/10/25 12:06
�Medication �Instructions �Recorded �Confirmed �Type
empagliflozin 10 mg tablet 10 mg PO DAILY Heart Failure 11/18/22 01/05/25 History
(Jardiance)
sacubitril 24 mg-valsartan 26 mg 1 tab PO BID 12/30/22 01/05/25 History
tablet (Entresto)
carvedilol 12.5 mg tablet 18.75 mg PO BID 01/08/23 01/05/25 History
potassium chloride 20 mEq 40 meq PO BID 01/08/23 01/05/25 History
tablet,extended release
furosemide 20 mg tablet (Lasix) 60 mg PO DAILY 06/23/23 01/05/25 History
spironolactone 25 mg tablet 25 mg PO DAILY 06/23/23 01/05/25 History
amiodarone 100 mg tablet 100 mg PO DAILY 12/30/24 01/05/25 History
ascorbic acid (vitamin C) 500 mg 1,000 mg PO DAILY 12/30/24 01/05/25 History
tablet (Vitamin C)
ezetimibe 10 mg tablet 10 mg PO DAILY 12/30/24 01/05/25 History
levothyroxine 88 mcg tablet 88 mcg PO DAILY 12/30/24 01/05/25 History
(Synthroid)
mexiletine 150 mg capsule 150 mg PO BID 12/30/24 01/05/25 History
warfarin 2 mg tablet 8.5 mg PO QPM 12/30/24 01/05/25 History
bupropion HCl 150 mg 24 hr tablet, 300 mg PO DAILY 01/05/25 01/05/25 History
extended release
Review of Systems
-
History Source: Patient and Family (daughter sitting bedside)
All other systems: Negative unless noted
Physical Exam
Vital Signs
Temp Pulse Resp BP Pulse Ox
98.0 F 120 16 126/91 100
01/10/25 11:10 01/10/25 11:10 01/10/25 11:10 01/10/25 11:10 01/10/25 11:10
GEN: NAD. AAO x3
HEENT: EOMI, MMM
LUNGS: RA. CTA B/L, no wheeze
CV: AV paced on tele. Reg, S1/S2, no murmur
ABD: soft, BS+, NT, ND
EXT: No cyanosis, clubbing, edema B/L
NEURO: Gross non-focal
SKIN: Warm, pink, dry. No rash.
Lab Results
01/10/25 11:47
01/10/25 11:47
Impression / Plan
-
Primary Vehicle Fare Collector: Dr. Kailyn Casey
Primary EP: Dr. Gutierrez
Impression:
Direct admission for AAD washout 01/10/25 prior to planned VT endocardial ablation 01/11/25
Recurrent NSVT
h/o VT storm in the setting of Tikosyn therapy 2012
h/o VT storm 11/2022 s/p epicardial and endocardial VT ablation 01/08/23
Chronic amiodarone and mexiletine therapy
Paroxysmal Afib
s/p PVI 05/2009
s/p PVI 06/2010
h/o Multaq, stopped because ineffective
s/p Medtronic SHORTHAND TEACHER-D 03/2013, upgraded to BiVICD 08/2016
Nonobstructive CAD by cath 01/15/23 and again 01/05/2025
Paroxysmal Atach
Chronic warfarin therapy
h/o CVA [facility]
considered a Xarelto failure
h/o suicide attempt 2015
h/o Myocarditis
h/o abnormal LFTs
Coronary vasospasm
Echo 01/09/2023: EF 50% with dyskinesis of basal anteroseptal wall, pacer wire in RV, mild TR
Echo 12/21/2024: EF 45 to 50%, mild hypokinesis of the basal anteroseptal wall, mild LVH, mild to moderate MR
Plan:
-Patient came to the hospital today as a direct admission for planned amiodarone and mexiletine washout in anticipation of VT ablation on 01/11/2025. Patient was seen in the ER for chest pain on 11/25/2024 and a week later completed a Lexiscan nuclear
stress test that showed fixed inferior defect and EF down to 41% which prompted echo on 12/21/2024 that showed EF 45 to 50%. Patient continued to have symptoms of chest pain and palpitations and eventually had a 10-day rhythm star monitor applied
that showed NSVT. Patient then had device reprogramming of her Medtronic SHORTHAND TEACHER�D, but ongoing symptoms and is now referred for VT ablation. Patient has a history of VT storm in the setting of Tikosyn therapy back in 2012. And then she had repeat VT
storm in 2022 and at that time had epicardial and endocardial VT ablation on 01/08/2023. Her amiodarone dose was increased to 200 mg daily and she also had mexiletine added with recurrent VT most recently, she did not take any of her usual doses of
amiodarone or mexiletine today. Patient also has a history of CVA treated with [facility]AT [facility] in 2012 and it was considered a Xarelto failure. She is now chronically on warfarin with INR is managed by [facility] and a goal of 2-3 using home fingerstick INR
machine.
-ECG ordered and reviewed by me is AV paced
-Just prior to admission patient was taking mexiletine 150 mg BID, amiodarone 100 mg daily and Coreg 18.75 mg BID. Last doses of amiodarone and mexiletine were 01/09/2025
-Continue Coreg at 18.75 mg BID
-If patient has recurrent VT we will try to obtain twelve-lead ECG and can use amiodarone IV if needed for suppression
-Patient is scheduled for endocardial VT ablation on 01/11/2025
-Patient has a history of embolic CVA treated with [facility]AT [facility] 2012 and this was considered a Xarelto failure. Patient is now chronically on warfarin with an INR goal of 2-3 using home fingerstick machine managed by cardiology as an outpatient.
INR is 1.29 on 01/10/2025 we will bridge with heparin gtt. Heparin gtt ordered by me and reviewed plan with patient and daughter who are in agreement
-Potassium 4.8 and magnesium 2.4, will continue with current doses of KCl 40 mEq BID
[2025-01-10 13:44] LABS: APTT 24.5 Sec (23.4-35.0)
[2025-01-10] MEDS: HEPARIN 25000 UNITS/250 ML IV (14:07)
--- NOTE | 2025-01-10 14:29 | CM ---
Chart reviewed. Patient is independent of ADLS, lives alone in a 1 S[address], 0 GARRY, 0 DME. Plan is for the patient to return home. CM to follow
--- NOTE | 2025-01-10 14:38 | PTCARENOTE ---
Pt arrived around 1100 as direct admit for arrhythmia washout prior to VT ablation. Pt started on heparin gtt for stroke prevention - has been off Coumadin since Sunday 01/07. Pt is alert/pleasant/conversive. Pt has no complaints. Daughter at
bedside. A/V paced w/ PVCs on monitor.
[2025-01-10] MEDS: KCL 40 MEQ PO (20:59)
[2025-01-10] MEDS: COREG 12.5 MG PO (20:59)
[2025-01-10] MEDS: ENTRESTO 24 MG/26 MG 1 TAB PO (20:59)
--- NOTE | 2025-01-10 21:15 | PTCARENOTE ---
Assumed care of pt from raad RN. Pt AAOx3. TILLMAN. Independent in the room. A/V paced on the tele monitor w/ PVC's. Pt w/ pace-maker and AICD. HR 60s. Palpable pulses throughout. No edema. Pt on RA. POX 99%. Lung sounds audible and equal. Abdomen
nontender. +BSx4. Pt voiding w/o issue. NPO staring at midnight. L AC 20 intact. Heparin infusing as ordered. PTT drawn and sent. No c/o pain at this time. See worklist for full nursing assessment and interventions. Call bernal within reach.
[2025-01-10 21:30] LABS: APTT 51.3 Sec (23.4-35.0)
[2025-01-10] MEDS: ATIVAN 0.5 MG PO (22:16)
[2025-01-11] VITALS (34 sets, daily range): BP systolic 79–107; BP diastolic 47–70; BMI 20.8
--- NOTE | 2025-01-11 00:30 | PTCARENOTE ---
No acute change in assessment. VSS. Pt OOB to void as needed. Heparin infusion maintained. No c/o pain. Call bernal within reach.
--- NOTE | 2025-01-11 04:11 | PTCARENOTE ---
No acute changes in assessment. VSS. 98% on RA. Heparin infusing as ordered. Labs drawn and sent. Pt NPO since midnight. Call bernal within reach.
[2025-01-11 04:15] LABS: INR 1.24; PT 15.8 Sec (11.4-14.6)
[2025-01-11 04:17] LABS: APTT 69.6 Sec (23.4-35.0)
[2025-01-11 05:24] LABS: Blood Urea Nitrogen 17 mg/dl (7-17); Calcium 9.9 mg/dl (8.4-10.2); Carbon Dioxide 25 mmol/L (22-30); Chloride 107 mmol/L (98-107); Estimated Creatinine Clearance 74 ml/min; Glucose 85 mg/dl (70-99); Potassium 4.4 mmol/L (3.5-5.1); Sodium 139 mmol/L (135-145); eGFR > 60.00
[2025-01-11] MEDS: SYNTHROID 88 MCG PO (05:37)
[2025-01-11] MEDS: FARXIGA 10 MG PO (08:11)
[2025-01-11] MEDS: WELLBUTRIN XL (24 hour extended release) 150 MG PO (08:12)
[2025-01-11] MEDS: ENTRESTO 24 MG/26 MG 1 TAB PO (08:12)
[2025-01-11] MEDS: KCL 40 MEQ PO ×2 (08:13→20:22)
[2025-01-11] MEDS: ALDACTONE 25 MG PO (08:13)
[2025-01-11] MEDS: COREG 12.5 MG PO (08:14)
[2025-01-11] MEDS: LASIX 60 MG PO (08:15)
--- NOTE | 2025-01-11 08:37 | PTCARENOTE ---
Assumed care of pt from previous RN. Pt AAOx3. Independent in the room. A/V paced on the tele monitor w/ PVC's. Pt w/ pace-maker and AICD. HR 60s. Palpable pulses throughout. No edema. Pt on RA. POX 100%. Lung sounds clear. Abdomen nontender. +BS.
Pt voiding w/o issue. L AC 20 intact. Heparin infusing as ordered. No c/o pain at this time. See worklist for full nursing assessment and interventions. Call bernal within reach.
--- NOTE | 2025-01-11 12:29 | PTCARENOTE ---
Cath labs RN in room w/ pt. Heparin gtt turned off. pt sent to labor relations consultant.
--- NOTE | 2025-01-11 12:36 | CM ---
Chart reviewed. Patient waiting for her ablation. Patient is independent of aDLS, lives alone in a 1 [address], 0 GARRY, 0 DME. Plan is for the patient to return home. CM to follow
--- NOTE | 2025-01-11 17:42 | ITS.CL.ABL ---
Steam Engineer - Ablation
Ablation
Procedure Report:
ELECTROPHYSIOLOGY ABLATION REPORT
Date of Procedure: January 11, 2025
Referring: Dr. Kailyn Casey
INDICATION: Sustained VT right bundle rate inferior despite amiodarone use. Mexiletine was added approximately 10 days ago with clinical improvement. Patient had a prior Endo epi VT procedure in 2022 demonstrating epicardial predominant scar as
well as mid myocardial scar with epi ablation limited by coronary anatomy. Patient had done relatively well after 2022 procedure until recently.
HISTORY: She also carries a history of multiple atrial ablations for atrial arrhythmias and was admitted yesterday for INR check and drug washout prior to VT ablation today
PROCEDURE:
After informed consent and patient safety timeout the patient was sedated by the anesthesiology service. Procedure was performed under general anesthesia with the potential for PFA utilization or potential repeat epicardial access. She was having
spontaneous PVCs couplets and triplets which were monomorphic right bundle right inferior matching the clinical ECG with a reversed pattern break across the precordium right bundle right inferior with lead III taller than lead II. QS was noted in
lead I and aVL suggesting epicardial exit. Cycle length of sustained ventricular rhythm was 670 to 680 ms under anesthesia. Clinically cycle length was below treatment zones at 143 bpm. The patient's DIRECTOR OF PSYCHIATRY-D device was interrogated and device
therapies were turned off for procedure. At the end of the procedure the patient's baseline bradycardia parameters were restored with a VF zone at 200 bpm, the VT zone was lowered to 150 bpm, and monitor zone at 122 bpm.
Once general anesthesia was established and we saved PVCs from our recording system for potential pace mapping. Under ultrasound guidance a 5 [place] short sheath was placed in the right femoral artery and a 9 [place] short sheath was placed in the
right femoral vein. The left femoral vein was also accessed with a 7 [place] and 9 [place] venous sheath. Given the coronary anatomy preventing significant epicardial ablation during the 2022 procedure the endocardial approach was chosen upfront. A
quadripolar catheter was brought to the right ventricle and intracardiac ultrasound demonstrated ejection fraction 40 to 45% with a relatively thick lateral LV wall with an epicardial strip suggesting epicardial scar and a trace pericardial effusion
which was stable pre and post procedure. We then upgraded the 9 [place] right femoral venous sheath to a steerable Agilis sheath over a long wire and transseptal puncture was performed to access the markedly dilated left atrium. Heparinization was
performed for goal ACT greater than 300 seconds. We then brought the multipolar grid catheter to the left atrium utilizing the [place] 3D mapping system. Intracardiac ultrasound was utilized to guide transseptal, to guide catheter position and
contact and for monitoring of lesion formation. The left atrium had dense scar with electrical isolation and entrance and exit block in all 4 pulmonary veins as well as the posterior wall roof and floor of the left atrium. As such no ablation was
performed in the left atrium despite prior ablation procedures performed in that region as well. Clinically she has been relatively stable from an arrhythmia perspective. We then performed electroanatomic voltage mapping with the multipolar grid
catheter via the transseptal approach in VT taking all latent fractionated signal and performing entrainment. Activation was at best 10 to 20 ms post QRS and entrainment of the tachycardia in the lateral wall at the base demonstrated a PPI of 157
ms greater than tachycardia cycle length at the best area of entrainment. QRS morphology pacing in these regions was markedly different from clinical Tachycardia. In sinus rhythm we also performed bipolar and unipolar voltage mapping demonstrating
an area of diminished unipolar signal despite normal bipolar signal at site 10-12 just posterior to the anterior lateral PAP back towards the mitral valve annulus. We also mapped on the atrial side of the annulus and the ventricular signal in this
region was not early or even on time and there was no late or fractionated signal in the left atrial side of the annulus.
We opted to upgrade the 5 [place] short arterial sheath in the right femoral artery to a 9 [place] long sheath and map and ablate the patient's ventricular tachycardia from the retrograde aortic approach for better region stability in the anterior
lateral regions of the LV at the base. We targeted all available areas of abnormal and diminished unipolar voltage which would was a relatively moderate-sized area from the anterolateral PAP back towards the mitral valve annulus from approximately
12-2 o'clock. As stated above in ventricular tachycardia we were no better than 10-20 milliseconds post QRS with manifest fusion and long PPI. Nonetheless dense ablation was performed in this region with greater than 30 minutes of radiofrequency
energy for 45 to 60-second lesions at 30 to 40 W targeting a 10 to 20 g force with a 4 mm irrigated radiofrequency catheter tacti- flex from the retrograde aortic approach. Interestingly just posterior to the anterolateral papillary muscle
tachycardia slowed from 670 ms to 720 ms and then terminated with long lesions in these regions. Intracardiac ultrasound demonstrated echo brightness in this area to the mid myocardium which was also relatively thick at 1 to 1.5 cm in this region.
Additional dense ablation was performed in and around the area of termination of tachycardia. The patient was no longer inducible for sustained tachycardia after this termination. �Given the likely epicardial�mid myocardial site of origin of this
tachyarrhythmia I elected to also deliver PFA lesions in this region. To accomplish this the tacti- flex was left in position and the retrograde aortic approach and utilizing the transseptal we brought the 9 mm lattice [employer] Affera catheter to
the same region under intracardiac ultrasound guidance and utilizing fluoroscopy demonstrating both catheters touching each other both on fluoroscopy and intracardiac ultrasound. The patient was patched for the second mapping system and we switched
mapping systems at that point with the tacti-Flex removed from the LV chamber. We then performed dense ablation with both radiofrequency at 400 W for 4 to 5 seconds and PFA lesions in this region which was greater than 1 cm from the mitral valve
annulus and as such we did not give additional nitroglycerin. Any lesions close towards the mitral valve were given with radiofrequency energy and lesions more anterior towards the base of the papular muscle were given with PFA.
The ZEYAD catheter was positioned within the LV cavity using a retrograde aortic approach.��The mapping/ablation catheter was then positioned in a similar fasion within the LV and the 3-D map was created first in SR.�A quadripolar catheter was
placed in the RVA.��Baseline measurements were obtained.��Programmed stimulation was performed.��Pacing from the RVA was performed.��One and two extrastimuli were introduced from the RV site.��Burst pacing was also performed from the RVA.��A right
bundle right inferior VT morphology 670 ms was easily induced spontaneously at baseline but could not be and reinduced after endocardial termination.��A map of the VT was then created.��Sheath and catheters were then withdrawn under fluoroscopic
guidance and 40 mg of protamine was given. Venous sheaths were given [id number] stitch and manual pressure was held to the right femoral artery x 30 minutes. Patient will be brought to the CVICU in stable condition and device therapies were
turned back on with adjustment in zones as above.
COMPLICATIONS: None
SUMMARY: Endocardial VT ablation targeting a mid myocardial�epicardial circuit based upon activation and entrainment; 670 ms right bundle right inferior VT. Slowing and termination of the patient's tachycardia with long lesions performed at site
10-12 at the base of the anterolateral PAP muscle. Tachycardia termination was with the 4 mm irrigated RF catheter via the retrograde aortic approach. We then via the transseptal approach brought the [employer] Lattice catheter to this region and
performed PFA lesions towards the anterolateral papillary muscle and 400 W irrigated radiofrequency lesions towards the mitral valve overlapping the retrograde aortic lesions.
RECOMMENDATIONS:
1. Resume amiodarone 200 mg daily and mexiletine 150 mg p.o. twice daily
2. Resume warfarin tonight and if the INR is less than 1.5 tomorrow could consider low-dose heparin drip without bolus until INR approaching 2.0
3. 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
4. If she were to have further recurrence I would refer her for consideration of cardiac radiation given the mid myocardial and epicardial focus as well as limited areas for ablation on the epicardium demonstrated a 2022 procedure due to coronary
anatomy. Could consider enrollment in radiate VT trial which is a randomized trial where she would be randomized either to cardiac radiation to her area of scar which has been defined at prior procedure in 2022 or repeat catheter ablation which
could include a repeat attempt at epicardial mapping. I explained this to both daughters and to the patient who are in understanding and agreement.
Copy to: Dr. Kailyn Casey
--- NOTE | 2025-01-11 19:19 | PTCARENOTE ---
~[id number]: Patient arrived from CCL in bed. Pt Aox4, anxious, AV paced on tele 60s, SBP 80s-90s, RA satting 99%. Pt does c/o chest pressure similar to what was c/o in CCL, providers are aware and patient states this is not new. B/L groin sites
soft, figure of [address] and patient bedrest and flat until 193 and then ad memo at 2030 per order. Family at bedside. All needs met at this time, call bernal within reach. Handoff report given to nightshift RN.
[2025-01-11] MEDS: COUMADIN 8 MG PO (19:22)
[2025-01-11] MEDS: COUMADIN 0.5 MG PO (19:24)
[2025-01-11] MEDS: PACERONE 200 MG PO (20:21)
[2025-01-11] MEDS: MEXITIL 150 MG PO (20:22)
[2025-01-11] MEDS: COREG 6.25 MG PO (22:14)
[2025-01-11] MEDS: ENTRESTO 24 MG/26 MG PO (22:22)
[2025-01-11] MEDS: COREG PO (22:22)
--- NOTE | 2025-01-12 00:55 | PTCARENOTE ---
Received pt at change of shift resting in bed. AV paced on tele, HR in the 60's. SBP 90's-100's. Bushra Devine, DINKEY PRESS OPERATOR made aware. Instructed RN to administer ordered Amiodarone and hold Entresto and Coreg. Order obtained for lower dose Coreg.
Administered per order--see JUL. b/l groin figure 8 sutures clipped @ 2044. and dressing placed. Sites C.D.I. No bleeding or hematoma noted at this time. Encouraged pt to call RN with any questions/concerns. Call bernal within reach.
[2025-01-12 04:26] VITALS: BP 94/59
[2025-01-12 04:42] VITALS: BMI 20.9
[2025-01-12 04:52] LABS: Hematocrit 34.1 % (37.0-47.0); Hemoglobin 11.4 g/dL (12.0-16.0); Mean Corp Hgb Conc. 33.4 g/dL (33.0-37.0); Mean Corpuscular Volume 95.5 fL (81.0-99.0); Platelet Count 163 10^3/uL (130-400); Red Cell Dist. Width 13.5 % (11.5-14.5)
[2025-01-12 05:12] LABS: Blood Urea Nitrogen 16 mg/dl (7-17); Calcium 9.1 mg/dl (8.4-10.2); Carbon Dioxide 23 mmol/L (22-30); Chloride 110 mmol/L (98-107); Estimated Creatinine Clearance 74 ml/min; Glucose 94 mg/dl (70-99); Magnesium 2.2 mg/dl (1.6-2.3); Potassium 4.6 mmol/L (3.5-5.1); Sodium 139 mmol/L (135-145); eGFR > 60.00
[2025-01-12 05:13] LABS: INR 1.13; PT 14.8 Sec (11.4-14.6)
[2025-01-12] MEDS: SYNTHROID 88 MCG PO (05:42)
[2025-01-12 07:04] VITALS: BP 84/50
--- NOTE | 2025-01-12 07:57 | W.PN.CARDCBS ---
Addendum entered and electronically signed by TAQUERIA Brown 01/12/25 09:10:
tele AV dual paced, no sig ectopy
Original Note:
Today's Communication / Plan
-
post VT ablation
Lovenox bridge until INR between 2-3
Increase Amiodarone 200mg daily
Impression / Plan
-
Primary Cloth Bolt Bander: Dr. Kailyn Casey
Primary EP: Dr. Gutierrez
Impression:
Direct admission for AAD washout 01/10/25 prior to planned VT endocardial ablation 01/11/25
Recurrent NSVT
h/o VT storm in the setting of Tikosyn therapy 2012
h/o VT storm 11/2022 s/p epicardial and endocardial VT ablation 01/08/23
Chronic amiodarone and mexiletine therapy
Paroxysmal Afib
s/p PVI 05/2009
s/p PVI 06/2010
h/o Multaq, stopped because ineffective
s/p Medtronic PARK ATTENDANT-D 03/2013, upgraded to BiVICD 08/2016
Nonobstructive CAD by cath 01/15/23 and again 01/05/2025
Paroxysmal Atach
Chronic warfarin therapy
h/o CVA treated with IAT at [facility] 03/2013
considered a Xarelto failure
h/o suicide attempt 2015
h/o Myocarditis
h/o abnormal LFTs
Coronary vasospasm
Echo 01/09/2023: EF 50% with dyskinesis of basal anteroseptal wall, pacer wire in RV, mild TR
Echo 12/21/2024: EF 45 to 50%, mild hypokinesis of the basal anteroseptal wall, mild LVH, mild to moderate MR
Plan:
post VT ablation 01/11/25
groin stable, tele SR with occ PAC's
INR 1.13 with goal 2-3, will continue warfarin 8.5mg daily with Lovenox bridge 60mg q12
Increase amiodarone 200mg daily
continue mexiletine 150mg bid
HF continue carvedilol, Entresto, spironolactone, Jardiance
Decrease carvedilol to 12.5mg bid with some bradycardia and hypotension o/n
If she were to have further recurrence consideration for cardiac radiation given the mid myocardial and epicardial focus as well as limited areas for ablation on the epicardium demonstrated a 2022 procedure due to coronary anatomy. Could consider
enrollment in radiate VT trial which is a randomized trial where she would be randomized either to cardiac radiation to her area of scar which has been defined at prior procedure in 2022 or repeat catheter ablation which could include a repeat
attempt at epicardial mapping. I explained this to both daughters and to the patient who are in understanding and agreement.
Activity restrictions reviewed
f/u Gutierrez in 1 mo
home today
SUMMARY: Endocardial VT ablation targeting a mid myocardial�epicardial circuit based upon activation and entrainment; 670 ms right bundle right inferior VT. Slowing and termination of the patient's tachycardia with long lesions performed at site
10-12 at the base of the anterolateral PAP muscle. Tachycardia termination was with the 4 mm irrigated RF catheter via the retrograde aortic approach. We then via the transseptal approach brought the [employer] Lattice catheter to this region and
performed PFA lesions towards the anterolateral papillary muscle and 400 W irrigated radiofrequency lesions towards the mitral valve overlapping the retrograde aortic lesions.
Progress Note - Cloth Bolt Bander
Subjective
Date of Service: January 12, 2025
denies cp, sob
Objective
Labs:
01/12/25 04:37
01/12/25 04:37
Labs
Hgb 11.4 g/dL (12.0-16.0) L 01/12/25 04:37
Hct 34.1 % (37.0-47.0) L 01/12/25 04:37
Plt Count 163 10^3/uL (130-400) 01/12/25 04:37
PT 14.8 Sec (11.4-14.6) H 01/12/25 04:37
INR 1.13 01/12/25 04:37
APTT Cancelled 01/11/25 20:27
Sodium 139 mmol/L (135-145) 01/12/25 04:37
Potassium 4.6 mmol/L (3.5-5.1) 01/12/25 04:37
BUN 16 mg/dl (7-17) 01/12/25 04:37
Creatinine 0.7 mg/dL (0.6-1.0) 01/12/25 04:37
Glucose 94 mg/dl (70-99) 01/12/25 04:37
Vital Signs and I&O:
Vital Signs
Temp Pulse Resp BP Pulse Ox
97.5 F 63 14 94/59 98
01/12/25 07:03 01/12/25 07:03 01/12/25 07:03 01/12/25 04:26 01/12/25 07:03
Vital Signs
Temp Pulse Resp BP Pulse Ox
97.5 F 63 14 94/59 98
01/12/25 07:03 01/12/25 07:03 01/12/25 07:03 01/12/25 04:26 01/12/25 07:03
Intake & Output
01/10/25 01/11/25 01/12/25 01/13/25
06:59 06:59 06:59 06:59
Intake Total 112.5 / 112.5 2691.5 / 2691.5
Output Total 800 / 800
Balance 112.5 / 112.5 1891.5 / 1891.5
Physical Exam
Physical Exam
NAD, AOx3
S1, S2, RRR
CTAB, non labored, no wheeze
SNTND Bsx4
b/l groins c/d/i no HT, soft, R groin with mild ecchymosis
[2025-01-12 08:38] VITALS: BP 104/79
[2025-01-12] MEDS: LASIX 60 MG PO (08:38)
[2025-01-12] MEDS: COREG 12.5 MG PO (08:38)
[2025-01-12] MEDS: FARXIGA 10 MG PO (08:38)
[2025-01-12] MEDS: KCL 40 MEQ PO (08:38)
[2025-01-12] MEDS: PACERONE 200 MG PO (08:38)
[2025-01-12] MEDS: ENTRESTO 24 MG/26 MG 1 TAB PO (08:38)
[2025-01-12] MEDS: WELLBUTRIN XL (24 hour extended release) 150 MG PO (08:39)
[2025-01-12] MEDS: MEXITIL 150 MG PO (08:39)
[2025-01-12] MEDS: ALDACTONE 25 MG PO (08:43)
--- NOTE | 2025-01-12 09:08 | W.DS.TRANS ---
DC Summary - Hand Sewer Shoes
-
Discharge Instructions:
Sleep Apnea Risk Low
Discharge Diagnosis/Procedures VT ablation
Diet Low Cholesterol,2 Gram Sodium
Driving Restrictions No driving for 24 hours
Blood Work Check INR daily until between 2-3
Instructions:
Stand-Alone Forms: DC Instructions- Cath/EP Lab
Changes to Home Medications: Yes
Discharge Medications:
DC Medications w/original date entered in [facility]
empagliflozin 10 mg tablet (Jardiance) 10 mg PO DAILY Heart Failure 11/18/22
sacubitril 24 mg-valsartan 26 mg tablet (Entresto) 1 tab PO BID 12/30/22
potassium chloride 20 mEq tablet,extended release 40 meq PO BID 01/08/23
furosemide 20 mg tablet (Lasix) 60 mg PO DAILY 06/23/23
spironolactone 25 mg tablet 25 mg PO DAILY 06/23/23
ascorbic acid (vitamin C) 500 mg tablet (Vitamin C) 1,000 mg PO DAILY 12/30/24
ezetimibe 10 mg tablet 10 mg PO DAILY 12/30/24
levothyroxine 88 mcg tablet (Synthroid) 88 mcg PO DAILY 12/30/24
mexiletine 150 mg capsule 150 mg PO BID 12/30/24
warfarin 2 mg tablet 8.5 mg PO QPM 12/30/24
bupropion HCl 150 mg 24 hr tablet, extended release 300 mg PO DAILY 01/05/25
amiodarone 100 mg tablet 200 mg (2 x 100 mg) PO DAILY #0 tabs 01/12/25
carvedilol 12.5 mg tablet 12.5 mg PO BID #1 tab 01/12/25
enoxaparin 60 mg/0.6 mL subcutaneous syringe (Lovenox) 60 mg (0.6 mL) SC Q12H 5 days #6 mL 01/12/25
Home Medication Changes
lovenox, decrease carvedilol, incrase amiodarone
Pending Results: No
--- NOTE | 2025-01-12 09:58 | CM ---
Reviewed chart. Met with Ms. Arreguin to review discharge plans. She states she is feeling well and maybe able to go home soon. She states prior to admission she resides ayo in a first floor condo without any steps to enter. She states prior to
admission she was independent with ambulation and adls. She states she does not have any DME in the home. She states she has a prescription plan. She states she has done Lovenox injections in the past and feels comfortable giving the injection.
Medical work-up in progress. The discharge plan is to return home when medically stable.
[2025-01-12 11:16] VITALS: BP 93/60
[2025-01-13 06:21] LABS: ACT-LR - POC 306 Seconds (116-155)
[2025-01-13 06:21] LABS: ACT-LR - POC 273 Seconds (116-155)
[2025-01-13 06:21] LABS: ACT-LR - POC 145 Seconds (116-155)
[2025-01-13 06:21] LABS: ACT-LR - POC 310 Seconds (116-155)
[2025-01-13 06:21] LABS: ACT-LR - POC 327 Seconds (116-155)
== END 2025-01-12 14:15 | disposition home or self-care (01) | DRG 274 ==
LOC: IVU 10:53
PROVIDERS: Nurse Practitioner; Physician Assistant Medical; ADMITTING PHYSICIAN Internal Medicine Cardiovascular Disease
PROC: 4B02XTZ Measurement of Cardiac Defibrillator, External Approach (ICD-10-PCS; 2025-01-11)
PROC: 4A0234Z Measurement of Cardiac Electrical Activity, Percutaneous Approach (ICD-10-PCS; 2025-01-11)
PROC: 02583ZZ Destruction of Conduction Mechanism, Percutaneous Approach (ICD-10-PCS; 2025-01-11)
PROC: 02K83ZZ Map Conduction Mechanism, Percutaneous Approach (ICD-10-PCS; 2025-01-11)
PROC: 4A023FZ Measurement of Cardiac Rhythm, Percutaneous Approach (ICD-10-PCS; 2025-01-11)
DX: I47.20 Ventricular tachycardia, unspecified (principal); I50.22 Chronic systolic (congestive) heart failure; I48.0 Paroxysmal atrial fibrillation; I49.3 Ventricular premature depolarization; Z79.01 Long term (current) use of anticoagulants; Z86.73 Personal history of transient ischemic attack (TIA), and cerebral infarction without residual deficits; Z95.810 Presence of automatic (implantable) cardiac defibrillator
CPT/HCPCS: 80048; 80053; 83735; 85027; 85347; 85610; 85730; 93005; 93654; C1730; C1732; C1733; C1759; C1766; C1769; C1892; C1894